=== PATIENT | female | born 1950 | race African-American/Black ===

== ENCOUNTER 2021-01-26 21:53 | Emergency (ER) | payer MEDICARE, MEDICAID ==
[~2021-01-26] VITALS: Ht 165.1 cm; Wt 77.0 kg
[2021-01-26] MEDS ORDERED: ASPIRIN 81MG TABLET PO ONE (22:45)
[2021-01-26] MEDS ORDERED: FUROSEMIDE 40MG TABLET PO ONE (22:45)
[2021-01-26 23:05] LABS: BASOPHILS % 1.2 % (0.0-2.0); EOSINOPHILS % 3.1 % (0.0-5.0); HEMATOCRIT. 29.5 % (36.0-48.0); HEMOGLOBIN. 9.5 g/dL (12.0-16.0); LYMPHOCYTES % 14.5 % (20.0-50.0); MEAN CORPUSCULAR HEMOGLOBIN 29.8 pg (28.0-32.0); MEAN CORPUSCULAR VOLUME 92.6 fL (81.0-99.0); MEAN PLATELET VOLUME 9.3 fl (7.4-10.4); MONOCYTES % 10.8 % (2.0-8.0); NEUTROPHILS % 70.4 % (40.0-76.0); PLATELET 67 x1000/uL (130-400); RED BLOOD CELL COUNT 3.19 mill/uL (4.2-5.4); RED CELL DISTRIBUTION WIDTH 16.7 % (11.6-14.6)
[2021-01-26 23:12] LABS: CHLORIDE 105 mEq/L (98-107)
[2021-01-27] MEDS ORDERED: FUROSEMIDE 40MG/4ML VIAL IVP NR
[2021-01-27 11:11] VITALS: BP 146/99
== END 2021-01-27 11:10 | disposition short-term general hospital (02) ==
LOC: ER 21:53
DX: I50.9 Heart failure, unspecified (principal); N18.6 End stage renal disease; H91.3 Deaf nonspeaking, not elsewhere classified; Z20.822 Contact with and (suspected) exposure to COVID-19; Z88.2 Allergy status to sulfonamides; Z88.0 Allergy status to penicillin
CPT/HCPCS: 36415; 71045; 80053; 83880; 84484; 85025; 87426; 93005; 96374; 99285; J1940

== ENCOUNTER 2021-02-14 17:34 | Inpatient (IN) | payer MEDICARE, MEDICAID ==
[~2021-02-14] VITALS: Ht 172.7 cm; Wt 84.8 kg
[2021-02-14] MEDS ORDERED: ASPIRIN 81MG TABLET PO ONE (18:00)
[2021-02-14] MEDS ORDERED: FUROSEMIDE 40MG/4ML VIAL IV ONE (18:00)
[2021-02-14 18:19] LABS: BASOPHILS % 1.3 % (0.0-2.0); EOSINOPHILS % 1.2 % (0.0-5.0); HEMATOCRIT. 29.8 % (36.0-48.0); HEMOGLOBIN. 9.7 g/dL (12.0-16.0); LYMPHOCYTES % 12.5 % (20.0-50.0); MEAN CORPUSCULAR VOLUME 92.5 fL (81.0-99.0); MEAN PLATELET VOLUME 9.6 fl (7.4-10.4); PLATELET 99 x1000/uL (130-400); RED BLOOD CELL COUNT 3.22 mill/uL (4.2-5.4); RED CELL DISTRIBUTION WIDTH 17.1 % (11.6-14.6)
[2021-02-14 18:25] LABS: CHLORIDE 104 mEq/L (98-107)
[2021-02-14] MEDS ORDERED: DEXTROSE 50% WATER 50ML SYRINGE IV ONE (21:30)
[2021-02-14] MEDS ORDERED: INSULIN REGULAR (HUMULIN R) 300UNITS/3ML VIAL IV ONE (21:30)
[2021-02-14] MEDS ORDERED: INSULIN REGULAR (HUMULIN R) 300UNITS/3ML VIAL IV SCH (23:00)
[2021-02-15] MEDS ORDERED: ONDANSETRON HCL 4MG/2ML INJ IV PRN (11:45)
[2021-02-15] MEDS ORDERED: ACETAMINOPHEN 325MG TABLET PO PRN (11:45)
[2021-02-15] MEDS: AMLODIPINE 10MG TABLET PO SCH (12:30)
[2021-02-15] MEDS ORDERED: CALC667T6 MT (14:53)
[2021-02-15] MEDS ORDERED: SEVE800T8 MT (14:53)
[2021-02-15] MEDS ORDERED: CALC0.253 MT (14:57)
[2021-02-15 16:00] VITALS: BP 138/85
[2021-02-15 17:15] LABS: HEPATITIS B SURFACE ANTIGEN NEGATIVE
[2021-02-15 18:03] LABS: PHOSPHORUS 3.2 mg/dL (2.5-4.9)
[2021-02-15 20:00] VITALS: BP_SYST 126; BP_SYST 155; BP_DIAS 109; BP_DIAS 67
[2021-02-16] VITALS: BP 122/61
[2021-02-16 04:00] VITALS: BP 130/75
[2021-02-16 06:57] LABS: EOSINOPHILS % 3.6 % (0.0-5.0); HEMOGLOBIN. 9.5 g/dL (12.0-16.0); LYMPHOCYTES % 10.1 % (20.0-50.0); MEAN CORPUSCULAR HEMOGLOBIN 30.3 pg (28.0-32.0); MEAN CORPUSCULAR VOLUME 95.5 fL (81.0-99.0); MEAN PLATELET VOLUME 9.8 fl (7.4-10.4); MONOCYTES % 11.6 % (2.0-8.0); NEUTROPHILS % 73.7 % (40.0-76.0); PLATELET 112 x1000/uL (130-400); RED BLOOD CELL COUNT 3.14 mill/uL (4.2-5.4); RED CELL DISTRIBUTION WIDTH 17.7 % (11.6-14.6)
[2021-02-16 08:00] VITALS: BP 138/102
[2021-02-16] MEDS: AMLODIPINE 10MG TABLET PO SCH (08:15)
[2021-02-16 12:00] VITALS: BP 138/98
[2021-02-16] MEDS: SEVELAMER CARBONATE 800 MG TABLET PO SCH ×2 (12:38→18:21)
[2021-02-16 16:00] VITALS: BP 134/91
[2021-02-16 20:00] VITALS: BP 131/83
[2021-02-16] MEDS ORDERED: IOHEXOL-300 100 ML BOTTLE ONE (20:16)
[2021-02-16] MEDS: ENOXAPARIN 30MG/0.3ML SYR SUBCUT SCH (21:11)
[2021-02-17] VITALS: BP 127/85
[2021-02-17 04:00] VITALS: BP 135/89
[2021-02-17] MEDS: SEVELAMER CARBONATE 800 MG TABLET PO SCH ×3 (06:11→17:02)
[2021-02-17 08:00] VITALS: BP 122/85
[2021-02-17] MEDS: AMLODIPINE 10MG TABLET PO SCH (09:02)
[2021-02-17 12:00] VITALS: BP 111/67
[2021-02-17 13:11] LABS: A/G RATIO 1.1 (0.7-1.7); ALBUMIN 3.5 g/dL (2.9-4.4); ALPHA-1-GLOBULIN 0.3 g/dL (0.0-0.4); ALPHA-2-GLOBULIN 0.7 g/dL (0.4-1.0); GAMMA GLOBULINS 1.3 g/dL (0.4-1.8); GLOBULIN TOTAL 3.3 g/dL (2.2-3.9); M-SPIKE 0.8 g/dL (Not Observed); TOTAL PROTEIN SERUM 6.8 g/dL (6.0-8.5)
[2021-02-17 15:43] LABS: BASOPHILS % 1.2 % (0.0-2.0); EOSINOPHILS % 5.3 % (0.0-5.0); HEMATOCRIT. 29.7 % (36.0-48.0); HEMOGLOBIN. 9.6 g/dL (12.0-16.0); LYMPHOCYTES % 13.1 % (20.0-50.0); MEAN CORPUSCULAR HEMOGLOBIN 30.7 pg (28.0-32.0); MEAN CORPUSCULAR VOLUME 94.7 fL (81.0-99.0); MEAN PLATELET VOLUME 9.1 fl (7.4-10.4); MONOCYTES % 10.8 % (2.0-8.0); NEUTROPHILS % 69.6 % (40.0-76.0); PLATELET 133 x1000/uL (130-400); RED BLOOD CELL COUNT 3.14 mill/uL (4.2-5.4); RED CELL DISTRIBUTION WIDTH 17.4 % (11.6-14.6)
[2021-02-17 16:00] VITALS: BP 119/82
[2021-02-17] MEDS ORDERED: HEPARIN SODIUM 1,000 UNIT/1ML VIAL IV SCH (19:45)
[2021-02-17 20:00] VITALS: BP 102/64
[2021-02-17] MEDS: ENOXAPARIN 30MG/0.3ML SYR SUBCUT SCH (21:35)
[2021-02-18 00:30] VITALS: BP 115/72
[2021-02-18 04:00] VITALS: BP 126/67
[2021-02-18] MEDS: SEVELAMER CARBONATE 800 MG TABLET PO SCH ×3 (06:39→17:06)
[2021-02-18 06:52] LABS: BASOPHILS % 1.1 % (0.0-2.0); EOSINOPHILS % 5.2 % (0.0-5.0); HEMATOCRIT. 25.2 % (36.0-48.0); HEMOGLOBIN. 8.1 g/dL (12.0-16.0); LYMPHOCYTES % 12.2 % (20.0-50.0); MEAN CORPUSCULAR HEMOGLOBIN 30.6 pg (28.0-32.0); MEAN CORPUSCULAR VOLUME 94.8 fL (81.0-99.0); MEAN PLATELET VOLUME 8.8 fl (7.4-10.4); MONOCYTES % 12.2 % (2.0-8.0); NEUTROPHILS % 69.3 % (40.0-76.0); PLATELET 92 x1000/uL (130-400); RED BLOOD CELL COUNT 2.66 mill/uL (4.2-5.4); RED CELL DISTRIBUTION WIDTH 17.9 % (11.6-14.6)
[2021-02-18 08:00] VITALS: BP 125/86
[2021-02-18] MEDS: AMLODIPINE 10MG TABLET PO SCH (09:05)
[2021-02-18 12:00] VITALS: BP 118/88
[2021-02-18 16:00] VITALS: BP 112/66
[2021-02-18 17:52] VITALS: BP 112/66
== END 2021-02-18 18:30 | disposition home or self-care (01) | DRG 194 ==
LOC: ER 17:34 → 7EST 02-15 01:42 → ENRESERV 02-15 07:25
PROVIDERS: ADMIT Internal Medicine; ATTEND Internal Medicine
PROC: 5A1D70Z Performance of Urinary Filtration, Intermittent, Less than 6 Hours Per Day (ICD-10-PCS; principal; 2021-02-15)
PROC: 5A1D70Z Performance of Urinary Filtration, Intermittent, Less than 6 Hours Per Day (ICD-10-PCS; 2021-02-16)
PROC: 5A1D70Z Performance of Urinary Filtration, Intermittent, Less than 6 Hours Per Day (ICD-10-PCS; 2021-02-17)
DX: I13.2 Hypertensive heart and chronic kidney disease with heart failure and with stage 5 chronic kidney disease, or end stage renal disease (principal); D69.6 Thrombocytopenia, unspecified; N18.6 End stage renal disease; E44.1 Mild protein-calorie malnutrition; I16.0 Hypertensive urgency; I50.9 Heart failure, unspecified; E87.5 Hyperkalemia; Z20.822 Contact with and (suspected) exposure to COVID-19; E83.52 Hypercalcemia; D64.9 Anemia, unspecified; E78.5 Hyperlipidemia, unspecified; N28.89 Other specified disorders of kidney and ureter; Z94.0 Kidney transplant status; Z99.2 Dependence on renal dialysis; Z68.28 Body mass index [BMI] 28.0-28.9, adult; Z88.0 Allergy status to penicillin; Z88.2 Allergy status to sulfonamides; Z88.1 Allergy status to other antibiotic agents
CPT/HCPCS: 36415; 71045; 71260; 74177; 80048; 80053; 82378; 82962; 83880; 83970; 84100; 84155; 84165; 84484; 85025; 86705; 86709; 86803; 87340; 87426; 93005; 99291; J1644; J1650; J1815; J1940; J7040; Q9967

== ENCOUNTER 2021-03-01 16:15 | Emergency (ER) | payer MEDICARE, MEDICAID ==
[~2021-03-01] VITALS: Ht 162.6 cm; Wt 75.0 kg
[~2021-03-01 16:15] MED LIST: SEVE800T8 MT
[2021-03-01 17:14] LABS: HEMATOCRIT. 28.9 % (36.0-48.0); HEMOGLOBIN. 9.4 g/dL (12.0-16.0); MEAN CORPUSCULAR HEMOGLOBIN 30.3 pg (28.0-32.0); MEAN CORPUSCULAR VOLUME 93.2 fL (81.0-99.0); MEAN PLATELET VOLUME 8.8 fl (7.4-10.4); RED CELL DISTRIBUTION WIDTH 17.4 % (11.6-14.6)
[2021-03-01 17:15] LABS: PLATELET 44 x1000/uL (130-400)
[2021-03-01 17:17] LABS: CHLORIDE 105 mEq/L (98-107)
[2021-03-01] MEDS ORDERED: ONDANSETRON HCL 4MG/2ML INJ IV STA (17:22)
[2021-03-01] MEDS ORDERED: MORPHINE SULFATE 4 MG/ML CPJ (NOT FOR IM USE) IV STA (17:22)
[2021-03-01] MEDS ORDERED: ASPIRIN 81MG TABLET PO ONE (17:30)
[2021-03-01] MEDS ORDERED: NITROGLYCERIN OINT 1GM/INCH UDPKT TD ONE (17:30)
[2021-03-01 17:32] LABS: PLATELET ESTIMATE MARKEDLY DECREASED
[2021-03-01 23:30] VITALS: BP 119/87
== END 2021-03-01 23:07 | disposition short-term general hospital (02) ==
LOC: ER 16:15 → CANBEDREQ 03-02 03:41
DX: R07.89 Other chest pain (principal); D69.6 Thrombocytopenia, unspecified; I13.2 Hypertensive heart and chronic kidney disease with heart failure and with stage 5 chronic kidney disease, or end stage renal disease; N18.6 End stage renal disease; I50.9 Heart failure, unspecified; Z99.2 Dependence on renal dialysis; Z88.3 Allergy status to other anti-infective agents; Z88.0 Allergy status to penicillin; Z88.2 Allergy status to sulfonamides
CPT/HCPCS: 36415; 71045; 80053; 84484; 85025; 93005; 96374; 96375; 99291; J2270; J2405; Z7610

== ENCOUNTER 2021-04-30 15:01 | Inpatient (IN) | payer MEDICARE, MEDICAID ==
[~2021-04-30] VITALS: Ht 167.6 cm; Wt 64.9 kg
[2021-04-30] MEDS ORDERED: MORPHINE SULFATE 4 MG/ML CPJ (NOT FOR IM USE) IV STA (16:33)
[2021-04-30] MEDS ORDERED: ONDANSETRON HCL 4MG/2ML INJ IV STA (16:33)
[2021-04-30] MEDS ORDERED: SODIUM CHLORIDE 0.9% 1,000 ML IV ONE (16:45)
[2021-04-30 16:52] LABS: BASOPHILS % 0.5 % (0.0-2.0); EOSINOPHILS % 2.2 % (0.0-5.0); HEMOGLOBIN. 10.6 g/dL (12.0-16.0); LYMPHOCYTES % 7.4 % (20.0-50.0); MEAN CORPUSCULAR HEMOGLOBIN 29.4 pg (28.0-32.0); MEAN CORPUSCULAR VOLUME 94.1 fL (81.0-99.0); MEAN PLATELET VOLUME 8.7 fl (7.4-10.4); MONOCYTES % 9.4 % (2.0-8.0); NEUTROPHILS % 80.5 % (40.0-76.0); RED BLOOD CELL COUNT 3.61 mill/uL (4.2-5.4); RED CELL DISTRIBUTION WIDTH 18.1 % (11.6-14.6)
[2021-04-30 16:58] LABS: CHLORIDE 102 mEq/L (98-107)
[2021-04-30 17:05] LABS: PLATELET 49 x1000/uL (130-400)
[2021-04-30 17:28] LABS: PLATELET ESTIMATE MARKEDLY DECREASED
[2021-05-01 08:17] LABS: CLARITY URINE CLOUDY (CLEAR); COLOR URINE YELLOW (YELLOW); KETONES URINE NEGATIVE (NEGATIVE); LEUKOCYTE ESTERASE URINE 3+ (NEGATIVE); NITRITE URINE NEGATIVE (NEGATIVE); OCCULT BLOOD URINE TRACE (NEGATIVE); PROTEIN URINE 3+ (NEGATIVE); UROBILINOGEN URINE 0.2 E.U./dL (0.2-1.0)
[2021-05-01] MEDS ORDERED: IPRATROPIUM/ALBUTEROL 0.5-3(2.5)MG/3ML NEB NEB PRN (10:00)
[2021-05-01] MEDS ORDERED: ENOXAPARIN 40MG/0.4ML SYR SUBCUT SCH (10:00)
[2021-05-01] MEDS ORDERED: CLONIDINE 0.1MG TABLET PO PRN (10:00)
[2021-05-01] MEDS ORDERED: HYDROCODONE/APAP 7.5/325MG 1 TAB TABLET PO PRN (10:00)
[2021-05-01] MEDS ORDERED: ACETAMINOPHEN 325MG TABLET PO PRN (10:00)
[2021-05-01] MEDS ORDERED: DOCUSATE SODIUM 100MG CAPSULE PO PRN (10:00)
[2021-05-01] MEDS ORDERED: ONDANSETRON HCL 4MG/2ML INJ IV PRN (10:00)
[2021-05-01 11:25] VITALS: BP 122/69
[2021-05-01 12:00] VITALS: BP 122/69
[2021-05-01] MEDS ORDERED: LEVOFLOXACIN 500MG PREMIX 100 ML IV NR (12:00)
[2021-05-01] MEDS ORDERED: LEVOFLOXACIN 250MG PREMIX 50 ML IV SCH ×3 (12:00→23:00)
[2021-05-01 12:27] LABS: HEPATITIS B SURFACE ANTIGEN NEGATIVE
[2021-05-01 16:00] VITALS: BP 117/72
[2021-05-01] MEDS ORDERED: FURO80TA87 PO (18:11)
[2021-05-01] MEDS ORDERED: ASPI-1497 PO (18:11)
[2021-05-01] MEDS ORDERED: ATOR40TA70 PO (18:11)
[2021-05-01 20:00] VITALS: BP 127/73
[2021-05-02] VITALS: BP 118/70
[2021-05-02 04:00] VITALS: BP 129/77
[2021-05-02 06:48] LABS: EOSINOPHILS % 6.7 % (0.0-5.0); HEMATOCRIT. 28.5 % (36.0-48.0); HEMOGLOBIN. 9.4 g/dL (12.0-16.0); MEAN CORPUSCULAR HEMOGLOBIN 30.5 pg (28.0-32.0); MEAN CORPUSCULAR VOLUME 92.4 fL (81.0-99.0); MEAN PLATELET VOLUME 8.5 fl (7.4-10.4); MONOCYTES % 8.7 % (2.0-8.0); NEUTROPHILS % 69.6 % (40.0-76.0); PLATELET 56 x1000/uL (130-400); RED BLOOD CELL COUNT 3.08 mill/uL (4.2-5.4); RED CELL DISTRIBUTION WIDTH 18.6 % (11.6-14.6)
[2021-05-02 07:09] LABS: CHLORIDE 104 mEq/L (98-107)
[2021-05-02 07:18] LABS: LDL CHOLESTEROL 73 mg/dL (5-100)
[2021-05-02 07:22] LABS: HDL CHOLESTEROL 85 mg/dL (40-59)
[2021-05-02 08:00] VITALS: BP 119/82
[2021-05-02 12:00] VITALS: BP 123/78
[2021-05-02 16:00] VITALS: BP 116/83
[2021-05-02 20:00] VITALS: BP 101/53
[2021-05-03 00:01] VITALS: BP 112/60
[2021-05-03 04:00] VITALS: BP 101/62
[2021-05-03 08:00] VITALS: BP 119/66
[2021-05-03 09:41] LABS: EOSINOPHILS % 6.1 % (0.0-5.0); HEMOGLOBIN. 10.3 g/dL (12.0-16.0); LYMPHOCYTES % 13.7 % (20.0-50.0); MEAN CORPUSCULAR HEMOGLOBIN 30.4 pg (28.0-32.0); MEAN CORPUSCULAR VOLUME 95.1 fL (81.0-99.0); MONOCYTES % 8.2 % (2.0-8.0); RED BLOOD CELL COUNT 3.37 mill/uL (4.2-5.4); RED CELL DISTRIBUTION WIDTH 18.9 % (11.6-14.6)
[2021-05-03 09:49] LABS: PARTIAL THROMBOPLASTIN TIME 32.5 sec (23.4-31.0); PROTHROMBIN TIME 10.9 sec (9.6-11.0)
[2021-05-03] MEDS ORDERED: SODIUM BICARBONATE 8.4% 1 MEQ/ML 50ML SYR IV NR (10:19)
[2021-05-03 10:37] LABS: MEAN PLATELET VOLUME 8.9 fl (7.4-10.4); PLATELET 64 x1000/uL (130-400)
[2021-05-03] MEDS ORDERED: INSULIN REGULAR (HUMULIN R) UD 100 UNITS/ML SYR IV NR (11:30)
[2021-05-03] MEDS ORDERED: DEXTROSE 50% WATER 50ML SYRINGE IV NR (11:30)
[2021-05-03] MEDS ORDERED: CALCIUM CHLORIDE 1,000 MG in DEXT 5% WATER 90 ML IV NR (11:30)
[2021-05-03 12:00] VITALS: BP 148/78
[2021-05-03 16:38] VITALS: BP 127/70
[2021-05-03] MEDS ORDERED: NALOXONE HCL 0.4MG/ML VIAL IV PRN (19:30)
[2021-05-03 20:00] VITALS: BP 144/88
[2021-05-03] MEDS ORDERED: LEVOFLOXACIN 250MG TABLET PO SCH (23:00)
[2021-05-04] VITALS (18 sets, daily range): BP systolic 110–157; BP diastolic 60–97
[2021-05-04 07:02] LABS: BASOPHILS % 0.9 % (0.0-2.0); EOSINOPHILS % 6.2 % (0.0-5.0); HEMATOCRIT. 27.3 % (36.0-48.0); LYMPHOCYTES % 16.4 % (20.0-50.0); MEAN CORPUSCULAR HEMOGLOBIN 30.7 pg (28.0-32.0); MEAN CORPUSCULAR VOLUME 93.5 fL (81.0-99.0); MEAN PLATELET VOLUME 8.4 fl (7.4-10.4); MONOCYTES % 10.7 % (2.0-8.0); NEUTROPHILS % 65.8 % (40.0-76.0); PLATELET 75 x1000/uL (130-400); RED BLOOD CELL COUNT 2.92 mill/uL (4.2-5.4); RED CELL DISTRIBUTION WIDTH 18.6 % (11.6-14.6)
[2021-05-04] MEDS ORDERED: IOHEXOL-300 100 ML BOTTLE ONE (09:38)
[2021-05-04] MEDS ORDERED: LIDOCAINE HCL 1% 20ML VIAL (Pyxis) INJ ONE (09:39)
[2021-05-04] MEDS ORDERED: FENTANYL CITRATE/PF 50MCG/ML 2ML VIAL ONE (10:03)
[2021-05-04] MEDS ORDERED: FENTANYL CITRATE/PF 50MCG/ML 2ML VIAL IV SCH (10:15)
[2021-05-04 11:24] LABS: HEMOGLOBIN 9.6 g/dL (12.0-16.0)
== END 2021-05-04 15:15 | disposition home or self-care (01) | DRG 194 ==
LOC: ER 15:01 → SUPCPDRO 15:45 → 8WST 18:50 → ENRESERV 05-01 09:49
PROVIDERS: ADMIT Internal Medicine Nephrology; ATTEND Internal Medicine Nephrology
PROC: 5A1D80Z Performance of Urinary Filtration, Prolonged Intermittent, 6-18 hours Per Day (ICD-10-PCS; 2021-05-01)
PROC: 5A1D70Z Performance of Urinary Filtration, Intermittent, Less than 6 Hours Per Day (ICD-10-PCS; 2021-05-03)
PROC: 06H03DZ Insertion of Intraluminal Device into Inferior Vena Cava, Percutaneous Approach (ICD-10-PCS; principal; 2021-05-04)
PROC: B519ZZA Fluoroscopy of Inferior Vena Cava, Guidance (ICD-10-PCS; 2021-05-04)
PROC: B549ZZA Ultrasonography of Inferior Vena Cava, Guidance (ICD-10-PCS; 2021-05-04)
DX: I13.2 Hypertensive heart and chronic kidney disease with heart failure and with stage 5 chronic kidney disease, or end stage renal disease (principal); D69.6 Thrombocytopenia, unspecified; N18.6 End stage renal disease; I82.431 Acute embolism and thrombosis of right popliteal vein; J84.9 Interstitial pulmonary disease, unspecified; N39.0 Urinary tract infection, site not specified; N28.1 Cyst of kidney, acquired; Z20.822 Contact with and (suspected) exposure to COVID-19; E78.5 Hyperlipidemia, unspecified; B96.20 Unspecified Escherichia coli [E. coli] as the cause of diseases classified elsewhere; Z90.49 Acquired absence of other specified parts of digestive tract; Z99.2 Dependence on renal dialysis; Z88.0 Allergy status to penicillin; Z88.8 Allergy status to other drugs, medicaments and biological substances; Z79.899 Other long term (current) drug therapy; Z95.828 Presence of other vascular implants and grafts; Z87.898 Personal history of other specified conditions; N28.89 Other specified disorders of kidney and ureter; I50.23 Acute on chronic systolic (congestive) heart failure
CPT/HCPCS: 36415; 37191; 71045; 74176; 80048; 80053; 80061; 81003; 83880; 84132; 84484; 85014; 85018; 85025; 86705; 86709; 86803; 87077; 87186; 87340; 87426; 93005; 93306; 93970; 99152; 99153; 99285; C1769; C1880; J1815; J1956; J2270; J2405; J3010; J3490; J7030; J7040; J7060; Q9967; G0500

== ENCOUNTER 2021-10-17 14:31 | Emergency (ER) | payer MEDICARE, MEDICAID ==
[~2021-10-17] VITALS: Ht 165.1 cm; Wt 80.0 kg
[~2021-10-17 14:31] MED LIST changes: +ASPI-1497 PO; +ATOR40TA70 PO; +FURO80TA87 PO
[2021-10-17] MEDS ORDERED: METO25TA6 MT (15:33)
[2021-10-17] MEDS ORDERED: METOPROLOL TARTRATE 25MG TABLET PO ONE (15:45)
[2021-10-17 15:54] VITALS: BP 153/92
== END 2021-10-17 17:27 | disposition home or self-care (01) ==
LOC: ER 14:45
DX: I10 Essential (primary) hypertension (principal); I50.9 Heart failure, unspecified; Z99.2 Dependence on renal dialysis; Z98.890 Other specified postprocedural states; Z79.899 Other long term (current) drug therapy; Z88.0 Allergy status to penicillin; Z88.2 Allergy status to sulfonamides
CPT/HCPCS: 93005; 99283

== ENCOUNTER → 2022-07-05 | Day surgery (SDC) | payer MEDICARE, MEDICAID ==
[~2022-07-05] MED LIST changes: +LIDOCAINE HCL/EPINEPHRINE 1%-EPI 1:100,000 20 ML VIAL ONE; +METO25TA6 MT; +SODIUM BICARBONATE 4% (2.4MEQ) 5ML VIAL IV ONE
== END | disposition home or self-care (01) ==
LOC: RAD 09:04
PROVIDERS: ATTEND Internal Medicine
DX: N63.21 Unspecified lump in the left breast, upper outer quadrant (principal); Z79.899 Other long term (current) drug therapy; Z98.890 Other specified postprocedural states
CPT/HCPCS: 19083; 88305; J3490